=== PATIENT | male | born 1975 | race Caucasian/White ===

== ENCOUNTER 2020-02-29 16:49 | Emergency (ER) | payer OTHER ==
[2020-02-29] MEDS ORDERED: PRILOSEC20 MG/CAP PO (17:23)
[2020-02-29] MEDS ORDERED: SIMVASTATIN20 MG PO (17:23)
[2020-02-29 19:45] VITALS: BP 102/61
== END 2020-02-29 19:45 | DRG 563 ==
LOC: ED 16:49
PROC: 2W3FX1Z Immobilization of Left Hand using Splint (ICD-10-PCS; principal; 2020-02-29)
DX: S62.321B Displaced fracture of shaft of second metacarpal bone, left hand, initial encounter for open fracture (principal); S62.323B Displaced fracture of shaft of third metacarpal bone, left hand, initial encounter for open fracture; S62.325B Displaced fracture of shaft of fourth metacarpal bone, left hand, initial encounter for open fracture; S62.327B Displaced fracture of shaft of fifth metacarpal bone, left hand, initial encounter for open fracture; S62.641A Nondisplaced fracture of proximal phalanx of left index finger, initial encounter for closed fracture; V86.55XA Driver of 3- or 4- wheeled all-terrain vehicle (ATV) injured in nontraffic accident, initial encounter; S00.212A Abrasion of left eyelid and periocular area, initial encounter